=== PATIENT | female | born 2005 | race Caucasian/White ===

== ENCOUNTER 2024-06-08 21:50 | Emergency (ER) | payer BC ==
[2024-06-09] MEDS ORDERED: Albuterol 2.5 MG (3 mL) NEB ONE (02:39)
[2024-06-09] MEDS ORDERED: Dexamethasone 10 MG/ML VIAL ONE (02:42)
== END 2024-06-09 04:00 | disposition home or self-care (01) ==
LOC: CSHERS 21:50
DX: J20.9 Acute bronchitis, unspecified (principal); J06.9 Acute upper respiratory infection, unspecified; F17.210 Nicotine dependence, cigarettes, uncomplicated; F17.290 Nicotine dependence, other tobacco product, uncomplicated
CPT/HCPCS: 71045; 87428; 94644; 94760; 96372; J1100; J7611

== ENCOUNTER 2025-02-03 19:35 | Day surgery (SDC) | payer BC ==
[2025-02-03 19:58] VITALS: BMI 39.1
[2025-02-03] MEDS ORDERED: hydrALAZINE 20 MG/ML VIAL SLOW IVP PRN (20:14)
== END 2025-02-03 21:35 | disposition home or self-care (01) ==
LOC: CSHLD/OP 19:35
PROVIDERS: ATTEND Student in an Organized Health Care Education/Training Program
DX: O36.8130 Decreased fetal movements, third trimester, not applicable or unspecified (principal); O47.1 False labor at or after 37 completed weeks of gestation; Z3A.39 39 weeks gestation of pregnancy; Z79.899 Other long term (current) drug therapy
CPT/HCPCS: 76819; 99283